=== PATIENT | female | born 1970 | race Caucasian/White ===

== ENCOUNTER 2016-08-09 15:31 | Emergency (ER) | payer MEDICAID ==
[2016-08-09] MEDS ORDERED: OPTIRAY 350 50 ML HMH IV ONE (15:32)
[2016-08-09] MEDS ORDERED: KETOROLAC 30 MG/ML VIAL ONE (17:28)
[2016-08-09] MEDS ORDERED: SODIUM CHLORIDE 0.9% 1,000 ML ONE (17:28)
[2016-08-09] MEDS ORDERED: ED CLINDAMYCIN PREMIX 50 ML IV ONE (17:44)
== END 2016-08-09 19:40 | disposition home or self-care (01) ==
LOC: ER 15:31 → FASTR 19:40
DX: K08.89 Other specified disorders of teeth and supporting structures (principal); K02.9 Dental caries, unspecified; K04.7 Periapical abscess without sinus; Z79.899 Other long term (current) drug therapy
CPT/HCPCS: 70487; 80053; 83605; 85025; 96361; 96365; 96375

== ENCOUNTER 2016-08-10 05:18 | Emergency (ER) | payer MEDICAID ==
[2016-08-10] MEDS ORDERED: SODIUM CHLORIDE 0.9% 1,000 ML ONE (06:05)
== END 2016-08-10 07:35 | disposition home or self-care (01) ==
LOC: ER 05:18
DX: R00.2 Palpitations (principal); R00.0 Tachycardia, unspecified; Z79.899 Other long term (current) drug therapy
CPT/HCPCS: 36415; 80053; 80307; 82553; 83735; 84439; 84443; 84484; 85025; 85610; 85730; 93005; 96360